=== PATIENT | male | born 1965 | race Caucasian/White ===

== ENCOUNTER 2017-01-18 07:50 | Inpatient (IN) | payer OTHER, MEDICAID ==
[~2017-01-18] VITALS: Ht 177.8 cm; Wt 88.9 kg
[~2017-01-18 07:50] MED LIST: AMLO-511 PO; ASPI81 PO
[2017-01-18] MEDS ORDERED: LORazepam 2 MG TABLET PO ONE ×2 (08:15→09:45)
[2017-01-18] MEDS ORDERED: ACETAMINOPHEN 325 MG TABLET PO ONE (08:15)
[2017-01-18] MEDS ORDERED: HALOPERIDOL 5 MG TABLET PO ONE (08:15)
[2017-01-18 08:28] LABS: BASOPHILS % (AUTO) 0.8 % (0.0-2.0); EOSINOPHILS % (AUTO) 1.8 % (1.0-6.0); HEMATOCRIT 48.4 % (41-53); HEMOGLOBIN 16.6 g/dL (13.5-17.5); LYMPHOCYTES # (AUTO) 1.8 K/uL (1.0-4.8); LYMPHOCYTES % (AUTO) 20.1 % (22.0-44.0); MEAN CORPUSCULAR HEMOGLOBIN 29.8 pg (26.0-34.0); MEAN CORPUSCULAR HGB CONC 34.3 G/dL (31.0-37.0); MEAN CORPUSCULAR VOLUME 87 fL (80-100); MONOCYTES # (AUTO) 0.4 K/uL (0.1-1.0); NEUTROPHILS # (AUTO) 6.4 K/uL (1.8-7.7); NEUTROPHILS % (AUTO) 72.3 % (40.0-70.0); PLATELET COUNT (AUTO) 158 K/uL (150-450); RED BLOOD CELL COUNT(AUTO) 5.56 MIL/uL (4.50-5.90); RED CELL DISTRIBUTION WIDTH 14.1 % (11.5-14.5); WHITE BLOOD COUNT (AUTO) 8.9 K/uL (4.5-11.0)
[2017-01-18 08:35] LABS: ANION GAP 13 mmol/L (8-16); CALCIUM, TOTAL 8.9 mg/dL (8.8-10.5); CARBON DIOXIDE 23 mmol/L (22-29); CHLORIDE 105 mmol/L (98-107); CREATININE 1.24 mg/dL (0.60-1.30); GLOMERULAR FILTR. RATE CALC > 60 mL/min (>60); POTASSIUM 3.6 mmol/L (3.5-5.1); SODIUM SERUM 141 mmol/L (136-145); UREA NITROGEN, BLOOD 17 mg/dL (7-18)
[2017-01-18 08:37] LABS: APPEARANCE,URINE CLEAR (CLEAR); GLUCOSE, URINE (UA) NEGATIVE (NEGATIVE); KETONES,URINE NEGATIVE (NEGATIVE); LEUKOCYTE ESTERASE ,URINE NEGATIVE (NEGATIVE); OCCULT BLOOD,URINE NEGATIVE (NEGATIVE); PROTEIN,URINE TRACE (NEGATIVE)
[2017-01-18 08:41] LABS: ALANINE AMINOTRANSFERASE 39 U/L (12-78); ALBUMIN 4.1 g/dL (3.4-5.0); ASPARTATE AMINOTRANSFERASE 24 U/L (15-37); BILIRUBIN,TOTAL 0.4 mg/dL (0.1-1.0); TOTAL PROTEIN, SERUM 7.4 g/dL (6.4-8.2)
[2017-01-18 08:47] LABS: HYALINE CASTS, URINE 0-2 /LPF (None Seen); WBC,URINE 0-2 /HPF (0-5)
[2017-01-18] MEDS ORDERED: ZOLPIDEM TARTRATE 10 MG TABLET PO PRN (11:15)
[2017-01-18] MEDS ORDERED: HALOPERIDOL 5 MG TABLET PO PRN (11:15)
[2017-01-18 12:47] VITALS: BP 124/72
[2017-01-18] MEDS: RisperiDONE 3 MG TABLET PO SCH (16:38)
[2017-01-18] MEDS: DIVALPROEX SODIUM 500 MG DR TABLET PO SCH (16:38)
[2017-01-18] MEDS: LORazepam 2 MG TABLET PO PRN (16:42)
[2017-01-18 19:53] VITALS: BP 137/86
[2017-01-19 08:15] VITALS: BP 162/95
[2017-01-19] MEDS: ASPIRIN 81 MG CHEWABLE TABLET PO SCH (08:52)
[2017-01-19] MEDS: RisperiDONE 3 MG TABLET PO SCH ×2 (08:52→16:25)
[2017-01-19] MEDS: DIVALPROEX SODIUM 500 MG DR TABLET PO SCH ×2 (08:52→16:25)
[2017-01-19] MEDS: AmLODIPine BESYLATE 5 MG TABLET PO SCH (08:52)
[2017-01-19] MEDS: LORazepam 2 MG TABLET PO PRN (16:28)
[2017-01-19 18:42] VITALS: BP 136/85
[2017-01-20] MEDS: DIVALPROEX SODIUM 500 MG DR TABLET PO SCH ×2 (08:19→17:08)
[2017-01-20] MEDS: AmLODIPine BESYLATE 5 MG TABLET PO SCH (08:19)
[2017-01-20] MEDS: ASPIRIN 81 MG CHEWABLE TABLET PO SCH (08:19)
[2017-01-20] MEDS: RisperiDONE 3 MG TABLET PO SCH ×2 (08:20→17:08)
[2017-01-20 09:29] VITALS: BP 134/96
[2017-01-20] MEDS: ATORVASTATIN CALCIUM 40 MG TABLET PO SCH (14:27)
[2017-01-20 16:48] VITALS: BP 115/82
[2017-01-21 08:05] VITALS: BP 140/111
[2017-01-21] MEDS: ASPIRIN 81 MG CHEWABLE TABLET PO SCH (08:39)
[2017-01-21] MEDS: AmLODIPine BESYLATE 5 MG TABLET PO SCH (08:39)
[2017-01-21] MEDS: RisperiDONE 3 MG TABLET PO SCH ×2 (08:39→15:56)
[2017-01-21] MEDS: DIVALPROEX SODIUM 500 MG DR TABLET PO SCH ×2 (08:39→15:56)
[2017-01-21] MEDS: ATORVASTATIN CALCIUM 40 MG TABLET PO SCH (08:39)
[2017-01-21] MEDS: LORazepam 2 MG TABLET PO PRN (15:56)
[2017-01-22 08:05] VITALS: BP 136/93
[2017-01-22] MEDS: DIVALPROEX SODIUM 500 MG DR TABLET PO SCH ×2 (08:23→16:27)
[2017-01-22] MEDS: ASPIRIN 81 MG CHEWABLE TABLET PO SCH (08:24)
[2017-01-22] MEDS: AmLODIPine BESYLATE 5 MG TABLET PO SCH (08:24)
[2017-01-22] MEDS: ATORVASTATIN CALCIUM 40 MG TABLET PO SCH (08:24)
[2017-01-22] MEDS: RisperiDONE 3 MG TABLET PO SCH ×2 (08:24→16:27)
[2017-01-22] MEDS: LORazepam 2 MG TABLET PO PRN (16:27)
[2017-01-22 19:12] VITALS: BP 143/74
[2017-01-23 08:01] VITALS: BP 133/81
[2017-01-23] MEDS: ASPIRIN 81 MG CHEWABLE TABLET PO SCH (08:07)
[2017-01-23] MEDS: ATORVASTATIN CALCIUM 40 MG TABLET PO SCH (08:07)
[2017-01-23] MEDS: DIVALPROEX SODIUM 500 MG DR TABLET PO SCH ×2 (08:07→16:17)
[2017-01-23] MEDS: AmLODIPine BESYLATE 5 MG TABLET PO SCH (08:07)
[2017-01-23] MEDS: RisperiDONE 3 MG TABLET PO SCH ×2 (08:08→16:17)
[2017-01-23] MEDS: LORazepam 2 MG TABLET PO PRN (16:19)
[2017-01-23 16:49] VITALS: BP 145/96
[2017-01-24] MEDS: DIVALPROEX SODIUM 500 MG DR TABLET PO SCH ×2 (08:51→16:56)
[2017-01-24] MEDS: AmLODIPine BESYLATE 5 MG TABLET PO SCH (08:51)
[2017-01-24] MEDS: ASPIRIN 81 MG CHEWABLE TABLET PO SCH (08:51)
[2017-01-24] MEDS: ATORVASTATIN CALCIUM 40 MG TABLET PO SCH (08:51)
[2017-01-24] MEDS: RisperiDONE 3 MG TABLET PO SCH ×2 (08:52→16:56)
[2017-01-24 10:04] VITALS: BP 119/99
[2017-01-24] MEDS: LORazepam 2 MG TABLET PO PRN (15:15)
[2017-01-24 16:37] VITALS: BP 137/96
[2017-01-25 08:00] VITALS: BP 139/105
[2017-01-25] MEDS: DIVALPROEX SODIUM 500 MG DR TABLET PO SCH ×2 (08:44→16:09)
[2017-01-25] MEDS: ASPIRIN 81 MG CHEWABLE TABLET PO SCH (08:44)
[2017-01-25] MEDS: AmLODIPine BESYLATE 5 MG TABLET PO SCH (08:45)
[2017-01-25] MEDS: ATORVASTATIN CALCIUM 40 MG TABLET PO SCH (08:45)
[2017-01-25] MEDS: RisperiDONE 3 MG TABLET PO SCH ×2 (08:45→16:09)
[2017-01-25] MEDS: LORazepam 2 MG TABLET PO PRN ×2 (12:29→16:39)
[2017-01-25 17:08] VITALS: BP 143/104
[2017-01-26 08:01] VITALS: BP 135/85
[2017-01-26] MEDS: ATORVASTATIN CALCIUM 40 MG TABLET PO SCH (08:36)
[2017-01-26] MEDS: AmLODIPine BESYLATE 5 MG TABLET PO SCH (08:36)
[2017-01-26] MEDS: DIVALPROEX SODIUM 500 MG DR TABLET PO SCH ×2 (08:36→16:45)
[2017-01-26] MEDS: RisperiDONE 3 MG TABLET PO SCH ×2 (08:36→16:45)
[2017-01-26] MEDS: ASPIRIN 81 MG CHEWABLE TABLET PO SCH (08:37)
[2017-01-26] MEDS: LORazepam 2 MG TABLET PO PRN ×3 (10:41→20:47)
[2017-01-26 18:15] VITALS: BP 132/88
[2017-01-27 01:12] VITALS: BP 122/96
[2017-01-27] MEDS: AmLODIPine BESYLATE 5 MG TABLET PO SCH (08:01)
[2017-01-27] MEDS: DIVALPROEX SODIUM 500 MG DR TABLET PO SCH (08:01)
[2017-01-27] MEDS: RisperiDONE 3 MG TABLET PO SCH (08:01)
[2017-01-27] MEDS: ASPIRIN 81 MG CHEWABLE TABLET PO SCH (08:01)
[2017-01-27] MEDS: ATORVASTATIN CALCIUM 40 MG TABLET PO SCH (08:01)
[2017-01-27 08:02] VITALS: BP 142/86
[2017-01-27] MEDS: LORazepam 2 MG TABLET PO PRN (09:51)
[2017-01-27] MEDS ORDERED: DIVA250T45 PO (10:29)
[2017-01-27] MEDS ORDERED: RISP3TAB44 PO (10:29)
[2017-01-27] MEDS ORDERED: ATOR40TA28 PO (10:36)
== END 2017-01-27 15:00 | disposition home or self-care (01) | DRG 885 ==
LOC: EMS 07:51 → 3EX 11:30
PROVIDERS: ADMIT Psychiatry & Neurology Psychiatry; ATTEND Psychiatry & Neurology Psychiatry
DX: F25.9 Schizoaffective disorder, unspecified (principal); F22 Delusional disorders; R45.851 Suicidal ideations; I10 Essential (primary) hypertension; F15.10 Other stimulant abuse, uncomplicated; F41.9 Anxiety disorder, unspecified; Z79.82 Long term (current) use of aspirin; Z79.899 Other long term (current) drug therapy; Z87.891 Personal history of nicotine dependence
CPT/HCPCS: 99285; G0480

== ENCOUNTER 2017-02-15 17:18 | Emergency (ER) | payer MEDICARE, MEDICAID ==
[~2017-02-15] VITALS: Ht 177.8 cm; Wt 90.9 kg
[~2017-02-15 17:18] MED LIST changes: +ATOR40TA28 PO; +DIVA250T45 PO; +RISP3TAB44 PO
[2017-02-15] MEDS ORDERED: ALPR0.5T8 PO (17:29)
[2017-02-15] MEDS ORDERED: LURA60TA PO (17:29)
[2017-02-15 19:24] VITALS: BP 149/95
[2017-02-15] MEDS ORDERED: BACITRACIN 0.9 GM PACKET OINTMENT TP ONE (19:30)
== END 2017-02-15 19:40 | disposition home or self-care (01) ==
LOC: EMS 17:20
DX: S90.822A Blister (nonthermal), left foot, initial encounter (principal); L97.519 Non-pressure chronic ulcer of other part of right foot with unspecified severity; I10 Essential (primary) hypertension; F17.210 Nicotine dependence, cigarettes, uncomplicated; F15.90 Other stimulant use, unspecified, uncomplicated; X58.XXXA Exposure to other specified factors, initial encounter; Y93.89 Activity, other specified; Y92.89 Other specified places as the place of occurrence of the external cause; Y99.8 Other external cause status
CPT/HCPCS: 99282; 99406

== ENCOUNTER 2017-04-12 23:38 | Inpatient (IN) | payer OTHER, MEDICAID ==
[~2017-04-12] VITALS: Ht 175.3 cm; Wt 87.1 kg
[~2017-04-12 23:38] MED LIST changes: +ALPR0.5T8 PO; +LURA60TA PO
[2017-04-13 00:16] LABS: BASOPHILS % (AUTO) 0.7 % (0.0-2.0); EOSINOPHILS % (AUTO) 1.6 % (1.0-6.0); HEMATOCRIT 49.6 % (41-53); LYMPHOCYTES # (AUTO) 2.4 K/uL (1.0-4.8); LYMPHOCYTES % (AUTO) 30.8 % (22.0-44.0); MEAN CORPUSCULAR HEMOGLOBIN 29.7 pg (26.0-34.0); MEAN CORPUSCULAR HGB CONC 34.3 G/dL (31.0-37.0); MEAN CORPUSCULAR VOLUME 86 fL (80-100); MONOCYTES # (AUTO) 0.4 K/uL (0.1-1.0); MONOCYTES % (AUTO) 5.6 % (2.0-9.0); NEUTROPHILS # (AUTO) 4.9 K/uL (1.8-7.7); NEUTROPHILS % (AUTO) 61.3 % (40.0-70.0); PLATELET COUNT (AUTO) 176 K/uL (150-450); RED BLOOD CELL COUNT(AUTO) 5.73 MIL/uL (4.50-5.90); RED CELL DISTRIBUTION WIDTH 13.9 % (11.5-14.5)
[2017-04-13 00:36] LABS: ANION GAP 12 mmol/L (8-16); CALCIUM, TOTAL 9.4 mg/dL (8.8-10.5); CARBON DIOXIDE 26 mmol/L (22-29); CHLORIDE 104 mmol/L (98-107); GLOMERULAR FILTR. RATE CALC > 60 mL/min (>60); POTASSIUM 4.1 mmol/L (3.5-5.1); SODIUM SERUM 142 mmol/L (136-145); UREA NITROGEN, BLOOD 12 mg/dL (7-18)
[2017-04-13 00:42] LABS: ALANINE AMINOTRANSFERASE 28 U/L (12-78); ALBUMIN 4.3 g/dL (3.4-5.0); ASPARTATE AMINOTRANSFERASE 22 U/L (15-37); BILIRUBIN,TOTAL 0.4 mg/dL (0.1-1.0)
[2017-04-13] MEDS ORDERED: ZOLPIDEM TARTRATE 10 MG TABLET PO PRN (00:45)
[2017-04-13] MEDS: HALOPERIDOL 5 MG TABLET PO PRN (02:19)
[2017-04-13] MEDS: LORazepam 2 MG TABLET PO PRN ×3 (02:20→17:26)
[2017-04-13] MEDS ORDERED: INFLUENZA VIRUS VACCINE QVS 2017-18 (3YR+)/PF 60 MCG/0.5 ML SYRINGE IM ONE (04:45)
[2017-04-13] MEDS ORDERED: PNEUMOCOCCAL VACCINE POLYVALENT 0.5 ML VIAL [PPSV23] IM ONE (04:45)
[2017-04-13 05:43] VITALS: BP 129/92
[2017-04-13 08:15] VITALS: BP 155/106
[2017-04-13 08:30] VITALS: BP 116/76
[2017-04-13 16:00] VITALS: BP 146/91
[2017-04-13] MEDS: DIVALPROEX SODIUM 500 MG DR TABLET PO SCH (17:00)
[2017-04-13] MEDS: RisperiDONE 2 MG TABLET PO SCH (17:00)
[2017-04-14 06:06] VITALS: BP 134/82
[2017-04-14 08:30] VITALS: BP 160/86
[2017-04-14] MEDS: RisperiDONE 2 MG TABLET PO SCH ×2 (09:00→16:02)
[2017-04-14] MEDS ORDERED: AmLODIPine BESYLATE 5 MG TABLET PO SCH (09:00)
[2017-04-14] MEDS: ATORVASTATIN CALCIUM 40 MG TABLET PO SCH (09:05)
[2017-04-14] MEDS: DIVALPROEX SODIUM 500 MG DR TABLET PO SCH ×2 (09:05→16:02)
[2017-04-14] MEDS: ASPIRIN 81 MG CHEWABLE TABLET PO SCH (09:05)
[2017-04-14 09:09] LABS: THYROID STIMULATING HORMONE 3.23 uIU/mL (0.36-3.74)
[2017-04-14 10:30] VITALS: BP 150/106
[2017-04-14] MEDS ORDERED: AmLODIPine BESYLATE 5 MG TABLET PO ONE (11:00)
[2017-04-14 11:32] LABS: HEMOGLOBIN A1C 5.3 % (4.5-6.2)
[2017-04-14 12:00] VITALS: BP 160/86
[2017-04-14] MEDS: LORazepam 2 MG TABLET PO PRN (13:50)
[2017-04-14 14:00] VITALS: BP 154/110
[2017-04-14] MEDS ORDERED: CloNIDine HCL 0.1 MG TABLET PO ONE (14:15)
[2017-04-14] MEDS: CloNIDine HCL 0.1 MG TABLET PO SCH (16:02)
[2017-04-14 16:26] VITALS: BP 118/80
[2017-04-15 05:15] VITALS: BP 133/90
[2017-04-15] MEDS: LORazepam 2 MG TABLET PO PRN ×3 (05:26→21:20)
[2017-04-15 08:10] VITALS: BP 111/67
[2017-04-15] MEDS: ATORVASTATIN CALCIUM 40 MG TABLET PO SCH (08:30)
[2017-04-15] MEDS: DIVALPROEX SODIUM 500 MG DR TABLET PO SCH ×2 (08:30→16:16)
[2017-04-15] MEDS: AmLODIPine BESYLATE 10 MG TABLET PO SCH (08:30)
[2017-04-15] MEDS: RisperiDONE 2 MG TABLET PO SCH ×2 (08:31→16:15)
[2017-04-15] MEDS: ASPIRIN 81 MG CHEWABLE TABLET PO SCH (08:31)
[2017-04-15] MEDS: CloNIDine HCL 0.1 MG TABLET PO SCH ×2 (09:00→16:15)
[2017-04-15 10:54] VITALS: BP 109/62
[2017-04-15 18:01] VITALS: BP 129/66
[2017-04-16 06:40] VITALS: BP 120/82
[2017-04-16 09:28] VITALS: BP 121/105
[2017-04-16] MEDS: ASPIRIN 81 MG CHEWABLE TABLET PO SCH (09:45)
[2017-04-16] MEDS: RisperiDONE 2 MG TABLET PO SCH ×2 (09:45→17:03)
[2017-04-16] MEDS: ATORVASTATIN CALCIUM 40 MG TABLET PO SCH (09:45)
[2017-04-16] MEDS: AmLODIPine BESYLATE 10 MG TABLET PO SCH (09:45)
[2017-04-16] MEDS: DIVALPROEX SODIUM 500 MG DR TABLET PO SCH ×2 (09:45→17:02)
[2017-04-16] MEDS: CloNIDine HCL 0.1 MG TABLET PO SCH ×2 (09:45→17:03)
[2017-04-16] MEDS: LORazepam 2 MG TABLET PO PRN ×2 (13:22→17:57)
[2017-04-16 16:15] VITALS: BP 112/72
[2017-04-17 01:09] VITALS: BP 117/72
[2017-04-17 08:36] VITALS: BP 120/69
[2017-04-17] MEDS: DIVALPROEX SODIUM 500 MG DR TABLET PO SCH ×2 (08:39→16:27)
[2017-04-17] MEDS: RisperiDONE 2 MG TABLET PO SCH ×2 (08:40→16:27)
[2017-04-17] MEDS: AmLODIPine BESYLATE 10 MG TABLET PO SCH (08:40)
[2017-04-17] MEDS: ATORVASTATIN CALCIUM 40 MG TABLET PO SCH (08:40)
[2017-04-17] MEDS: CloNIDine HCL 0.1 MG TABLET PO SCH ×2 (08:40→16:27)
[2017-04-17] MEDS: ASPIRIN 81 MG CHEWABLE TABLET PO SCH (08:40)
[2017-04-17] MEDS: LORazepam 2 MG TABLET PO PRN (11:22)
[2017-04-17 16:00] VITALS: BP 119/84
[2017-04-18 06:59] VITALS: BP 103/65
[2017-04-18 08:48] VITALS: BP 128/78
[2017-04-18] MEDS: DIVALPROEX SODIUM 500 MG DR TABLET PO SCH ×2 (09:13→17:07)
[2017-04-18] MEDS: AmLODIPine BESYLATE 10 MG TABLET PO SCH (09:13)
[2017-04-18] MEDS: CloNIDine HCL 0.1 MG TABLET PO SCH ×2 (09:13→17:07)
[2017-04-18] MEDS: ASPIRIN 81 MG CHEWABLE TABLET PO SCH (09:13)
[2017-04-18] MEDS: ATORVASTATIN CALCIUM 40 MG TABLET PO SCH (09:13)
[2017-04-18] MEDS: RisperiDONE 2 MG TABLET PO SCH ×2 (09:13→17:07)
[2017-04-18] MEDS: LORazepam 2 MG TABLET PO PRN (10:56)
[2017-04-18 16:04] VITALS: BP 126/80
[2017-04-19 06:29] VITALS: BP 115/73
[2017-04-19 08:31] VITALS: BP 147/71
[2017-04-19] MEDS: AmLODIPine BESYLATE 10 MG TABLET PO SCH (08:55)
[2017-04-19] MEDS: DIVALPROEX SODIUM 500 MG DR TABLET PO SCH ×2 (08:55→16:36)
[2017-04-19] MEDS: ATORVASTATIN CALCIUM 40 MG TABLET PO SCH (08:55)
[2017-04-19] MEDS: ASPIRIN 81 MG CHEWABLE TABLET PO SCH (08:55)
[2017-04-19] MEDS: RisperiDONE 2 MG TABLET PO SCH (08:55)
[2017-04-19] MEDS: CloNIDine HCL 0.1 MG TABLET PO SCH ×2 (08:55→16:36)
[2017-04-19] MEDS: LORazepam 2 MG TABLET PO PRN (11:56)
[2017-04-19 16:02] VITALS: BP_SYST 107; BP_SYST 110; BP_DIAS 69
[2017-04-19] MEDS: HALOPERIDOL 5 MG TABLET PO PRN (16:28)
[2017-04-19] MEDS: RisperiDONE 3 MG TABLET PO SCH (19:26)
[2017-04-20 03:59] VITALS: BP 116/75
[2017-04-20 08:58] VITALS: BP 126/77
[2017-04-20] MEDS: CloNIDine HCL 0.1 MG TABLET PO SCH ×2 (09:06→16:33)
[2017-04-20] MEDS: ATORVASTATIN CALCIUM 40 MG TABLET PO SCH (09:06)
[2017-04-20] MEDS: RisperiDONE 3 MG TABLET PO SCH ×2 (09:06→16:33)
[2017-04-20] MEDS: DIVALPROEX SODIUM 500 MG DR TABLET PO SCH ×2 (09:06→16:33)
[2017-04-20] MEDS: AmLODIPine BESYLATE 10 MG TABLET PO SCH (09:06)
[2017-04-20] MEDS: ASPIRIN 81 MG CHEWABLE TABLET PO SCH (09:06)
[2017-04-20] MEDS: LORazepam 2 MG TABLET PO PRN (09:46)
[2017-04-20 16:05] VITALS: BP_SYST 108; BP_SYST 128; BP_DIAS 64; BP_DIAS 94
[2017-04-21 03:40] VITALS: BP 122/75
[2017-04-21 08:22] VITALS: BP 133/82
[2017-04-21] MEDS: CloNIDine HCL 0.1 MG TABLET PO SCH (08:58)
[2017-04-21] MEDS: AmLODIPine BESYLATE 10 MG TABLET PO SCH (08:58)
[2017-04-21] MEDS: ATORVASTATIN CALCIUM 40 MG TABLET PO SCH (08:58)
[2017-04-21] MEDS: RisperiDONE 3 MG TABLET PO SCH (08:58)
[2017-04-21] MEDS: DIVALPROEX SODIUM 500 MG DR TABLET PO SCH (08:58)
[2017-04-21] MEDS: ASPIRIN 81 MG CHEWABLE TABLET PO SCH (08:58)
[2017-04-21] MEDS ORDERED: DIVA500T35 PO (10:09)
[2017-04-21] MEDS ORDERED: CLON-570 PO (10:09)
== END 2017-04-21 13:00 | disposition home or self-care (01) | DRG 885 ==
LOC: EMS 23:40 → B2S 04-13 02:09 → B2X 04-17 16:05
PROVIDERS: ADMIT Psychiatry & Neurology Psychiatry; ATTEND Psychiatry & Neurology Psychiatry
DX: F20.0 Paranoid schizophrenia (principal); E78.5 Hyperlipidemia, unspecified; Z28.21 Immunization not carried out because of patient refusal; Z79.82 Long term (current) use of aspirin; Z79.899 Other long term (current) drug therapy; F17.210 Nicotine dependence, cigarettes, uncomplicated; F19.11 Other psychoactive substance abuse, in remission; I10 Essential (primary) hypertension; F10.129 Alcohol abuse with intoxication, unspecified
CPT/HCPCS: 83036; 84439; 84443; 90471; 99285; G0480

== ENCOUNTER 2017-09-27 00:07 | Emergency (ER) | payer MEDICARE, MEDICAID ==
[~2017-09-27] VITALS: Ht 177.8 cm; Wt 91.5 kg
[~2017-09-27 00:07] MED LIST changes: -ALPR0.5T8 PO; +CLON-570 PO; -DIVA250T45 PO; +DIVA500T35 PO; -LURA60TA PO
[2017-09-27] MEDS ORDERED: LISI-661 PO (00:15)
[2017-09-27 03:00] VITALS: BP 138/76
== END 2017-09-27 03:47 | disposition home or self-care (01) ==
LOC: EMS 00:09
DX: K08.89 Other specified disorders of teeth and supporting structures (principal); F17.210 Nicotine dependence, cigarettes, uncomplicated; F20.9 Schizophrenia, unspecified; I10 Essential (primary) hypertension; F15.10 Other stimulant abuse, uncomplicated; Z79.82 Long term (current) use of aspirin; Z98.890 Other specified postprocedural states
CPT/HCPCS: 99283

== ENCOUNTER 2018-02-14 00:47 | Emergency (ER) | payer MEDICARE, MEDICAID ==
[~2018-02-14] VITALS: Ht 177.8 cm; Wt 90.9 kg
[~2018-02-14 00:47] MED LIST changes: -CLON-570 PO; -DIVA500T35 PO; +LISI-661 PO; -RISP3TAB44 PO
[2018-02-14] MEDS ORDERED: ALPR0.5T8 PO (00:57)
[2018-02-14] MEDS ORDERED: LURA80 PO (00:57)
[2018-02-14] MEDS ORDERED: DiphenhydrAMINE HCL 25 MG CAPSULE PO ONE (02:30)
[2018-02-14 02:31] VITALS: BP 138/88
== END 2018-02-14 02:41 | disposition home or self-care (01) ==
LOC: EMS 00:47
DX: L25.9 Unspecified contact dermatitis, unspecified cause (principal); I10 Essential (primary) hypertension; F20.9 Schizophrenia, unspecified; F17.210 Nicotine dependence, cigarettes, uncomplicated; F15.90 Other stimulant use, unspecified, uncomplicated
CPT/HCPCS: 99283

== ENCOUNTER 2018-02-16 17:07 | Emergency (ER) | payer MEDICARE, MEDICAID ==
[~2018-02-16] VITALS: Ht 177.8 cm; Wt 90.9 kg
[~2018-02-16 17:07] MED LIST changes: +ALPR0.5T8 PO; -ASPI81 PO; -ATOR40TA28 PO; +LURA80 PO
[2018-02-16 19:02] LABS: BASOPHILS % (AUTO) 1.2 % (0.0-2.0); EOSINOPHILS % (AUTO) 1.3 % (1.0-6.0); HEMATOCRIT 42.6 % (41-53); HEMOGLOBIN 14.8 g/dL (13.5-17.5); LYMPHOCYTES # (AUTO) 1.3 K/uL (1.0-4.8); LYMPHOCYTES % (AUTO) 17.1 % (22.0-44.0); MEAN CORPUSCULAR HEMOGLOBIN 28.9 pg (26.0-34.0); MEAN CORPUSCULAR HGB CONC 34.6 G/dL (31.0-37.0); MEAN CORPUSCULAR VOLUME 84 fL (80-100); MONOCYTES # (AUTO) 0.6 K/uL (0.1-1.0); MONOCYTES % (AUTO) 7.6 % (2.0-9.0); NEUTROPHILS # (AUTO) 5.6 K/uL (1.8-7.7); NEUTROPHILS % (AUTO) 72.8 % (40.0-70.0); PLATELET COUNT (AUTO) 218 K/uL (150-450); RED CELL DISTRIBUTION WIDTH 13.7 % (11.5-14.5)
[2018-02-16 19:18] LABS: ANION GAP 12 mmol/L (8-16); CALCIUM, TOTAL 8.8 mg/dL (8.8-10.5); CARBON DIOXIDE 23 mmol/L (22-29); CHLORIDE 106 mmol/L (98-107); CREATININE 1.25 mg/dL (0.60-1.30); GLOMERULAR FILTR. RATE CALC 60 mL/min (>60); GLUCOSE,RANDOM 95 mg/dL (70-110); POTASSIUM 3.9 mmol/L (3.5-5.1); SODIUM SERUM 141 mmol/L (136-145); UREA NITROGEN, BLOOD 22 mg/dL (7-18)
[2018-02-16 19:24] LABS: AMPHET/METH SCREEN,URINE POSITIVE (NEGATIVE); BARBITURATE SCREEN, URINE NEGATIVE (NEGATIVE); BENZODIAZEPINES SCREEN,URINE POSITIVE (NEGATIVE); CANNABINOID SCREEN,URINE NEGATIVE (NEGATIVE); COCAINE SCREEN,URINE NEGATIVE (NEGATIVE); METHADONE SCREEN, URINE NEGATIVE (NEGATIVE); OPIATE SCREEN,URINE NEGATIVE (NEGATIVE)
[2018-02-16 19:25] LABS: ALANINE AMINOTRANSFERASE 24 U/L (12-78); ALBUMIN 3.7 g/dL (3.4-5.0); ALKALINE PHOSPHATASE 61 U/L (46-116); ASPARTATE AMINOTRANSFERASE 23 U/L (15-37); BILIRUBIN,TOTAL 0.4 mg/dL (0.1-1.0); TOTAL PROTEIN, SERUM 7.6 g/dL (6.4-8.2)
[2018-02-16 19:37] LABS: PHENCYCLIDINE SCREEN,URINE NEGATIVE (NEGATIVE)
[2018-02-16] MEDS ORDERED: LORazepam 1 MG TABLET PO ONE (20:00)
[2018-02-16] MEDS ORDERED: HALOPERIDOL 1 MG TABLET PO ONE (20:00)
[2018-02-16] MEDS ORDERED: AMLO-512 PO (20:01)
[2018-02-16 20:13] VITALS: BP 127/87
== END 2018-02-16 20:23 | disposition home or self-care (01) ==
LOC: EMS 17:09
DX: F41.9 Anxiety disorder, unspecified (principal); F22 Delusional disorders; I10 Essential (primary) hypertension; F20.9 Schizophrenia, unspecified; F17.210 Nicotine dependence, cigarettes, uncomplicated; F15.90 Other stimulant use, unspecified, uncomplicated; Z79.899 Other long term (current) drug therapy
CPT/HCPCS: 36415; 80053; 80307; 85025; 99284; G0480

== ENCOUNTER 2018-03-02 06:51 | Inpatient (IN) | payer OTHER, MEDICAID ==
[~2018-03-02] VITALS: Ht 177.8 cm; Wt 83.5 kg
[~2018-03-02 06:51] MED LIST changes: -AMLO-511 PO; +AMLO-512 PO
[2018-03-02] MEDS ORDERED: ASPI81 PO (07:04)
[2018-03-02] MEDS ORDERED: QUET25TA PO (07:04)
[2018-03-02] MEDS ORDERED: HALOPERIDOL 5 MG TABLET PO PRN (08:30)
[2018-03-02] MEDS ORDERED: ZOLPIDEM TARTRATE 10 MG TABLET PO PRN (08:30)
[2018-03-02 10:06] LABS: AMPHET/METH SCREEN,URINE POSITIVE (NEGATIVE); BARBITURATE SCREEN, URINE NEGATIVE (NEGATIVE); BENZODIAZEPINES SCREEN,URINE POSITIVE (NEGATIVE); CANNABINOID SCREEN,URINE NEGATIVE (NEGATIVE); COCAINE SCREEN,URINE NEGATIVE (NEGATIVE); METHADONE SCREEN, URINE NEGATIVE (NEGATIVE); OPIATE SCREEN,URINE NEGATIVE (NEGATIVE)
[2018-03-02 10:07] LABS: PHENCYCLIDINE SCREEN,URINE NEGATIVE (NEGATIVE)
[2018-03-02 10:12] LABS: APPEARANCE,URINE CLEAR (CLEAR); BILIRUBIN,URINE NEGATIVE (NEGATIVE); GLUCOSE, URINE (UA) NEGATIVE (NEGATIVE); KETONES,URINE NEGATIVE (NEGATIVE); LEUKOCYTE ESTERASE ,URINE NEGATIVE (NEGATIVE); NITRATE,URINE NEGATIVE (NEGATIVE); OCCULT BLOOD,URINE NEGATIVE (NEGATIVE); PROTEIN,URINE NEGATIVE (NEGATIVE); UROBILINOGEN,URINE 0.2 mg/dL (<=1.0)
[2018-03-02] MEDS: LORazepam 2 MG TABLET PO PRN (11:39)
[2018-03-02 13:30] VITALS: BP 123/83
[2018-03-02 17:00] VITALS: BP 106/59
[2018-03-03 06:23] LABS: BASOPHILS % (AUTO) 0.6 % (0.0-2.0); EOSINOPHILS % (AUTO) 3.4 % (1.0-6.0); HEMATOCRIT 46.2 % (41-53); HEMOGLOBIN 15.7 g/dL (13.5-17.5); LYMPHOCYTES # (AUTO) 2.2 K/uL (1.0-4.8); LYMPHOCYTES % (AUTO) 30.8 % (22.0-44.0); MEAN CORPUSCULAR HEMOGLOBIN 29.1 pg (26.0-34.0); MEAN CORPUSCULAR HGB CONC 33.9 G/dL (31.0-37.0); MEAN CORPUSCULAR VOLUME 86 fL (80-100); MONOCYTES # (AUTO) 0.5 K/uL (0.1-1.0); MONOCYTES % (AUTO) 7.2 % (2.0-9.0); NEUTROPHILS # (AUTO) 4.2 K/uL (1.8-7.7); PLATELET COUNT (AUTO) 175 K/uL (150-450); RED BLOOD CELL COUNT(AUTO) 5.38 MIL/uL (4.50-5.90); RED CELL DISTRIBUTION WIDTH 13.6 % (11.5-14.5)
[2018-03-03 06:32] LABS: HEMOGLOBIN A1C 5.4 % (4.5-6.2)
[2018-03-03 07:06] LABS: ALANINE AMINOTRANSFERASE 25 U/L (12-78); ALBUMIN 3.3 g/dL (3.4-5.0); ALKALINE PHOSPHATASE 56 U/L (46-116); ANION GAP 9 mmol/L (8-16); ASPARTATE AMINOTRANSFERASE 18 U/L (15-37); BILIRUBIN,TOTAL 0.3 mg/dL (0.1-1.0); CALCIUM, TOTAL 8.6 mg/dL (8.8-10.5); CARBON DIOXIDE 26 mmol/L (22-29); CHLORIDE 104 mmol/L (98-107); CHOL/HDL RATIO 6.4 (4.2-7.3); CHOLESTEROL 216 mg/dL (131-200); CREATININE 1.09 mg/dL (0.60-1.30); FREE T4 (FREE THYROXINE) 0.58 ng/dL (0.76-1.46); GLOMERULAR FILTR. RATE CALC > 60 mL/min (>60); GLUCOSE,RANDOM 95 mg/dL (70-110); HDL CHOLESTEROL 34 mg/dL (40-60); LDL CHOL (CALC.) 128 mg/dL (0-130); POTASSIUM 4.1 mmol/L (3.5-5.1); SODIUM SERUM 139 mmol/L (136-145); THYROID STIMULATING HORMONE 1.78 uIU/mL (0.36-3.74); TOTAL PROTEIN, SERUM 6.7 g/dL (6.4-8.2); TRIGLYCERIDES 272 mg/dL (15-150); UREA NITROGEN, BLOOD 17 mg/dL (7-18)
[2018-03-03] MEDS: ASPIRIN 81 MG CHEWABLE TABLET PO SCH (08:55)
[2018-03-03] MEDS: DIVALPROEX SODIUM 500 MG DR TABLET PO SCH ×2 (08:55→16:44)
[2018-03-03] MEDS: RisperiDONE 3 MG TABLET PO SCH ×2 (08:55→16:44)
[2018-03-03] MEDS ORDERED: AmLODIPine BESYLATE 10 MG TABLET PO SCH (09:00)
[2018-03-03] MEDS ORDERED: LISINOPRIL 10 MG TABLET PO SCH (09:00)
[2018-03-03 09:20] VITALS: BP 143/67
[2018-03-03] MEDS: AmLODIPine BESYLATE 5 MG TABLET PO SCH (09:36)
[2018-03-03] MEDS: LISINOPRIL 5 MG TABLET PO SCH (09:37)
[2018-03-03] MEDS: LORazepam 2 MG TABLET PO PRN (16:45)
[2018-03-03 22:33] VITALS: BP 121/64
[2018-03-04] MEDS: RisperiDONE 3 MG TABLET PO SCH ×2 (09:41→16:55)
[2018-03-04] MEDS: ASPIRIN 81 MG CHEWABLE TABLET PO SCH (09:41)
[2018-03-04] MEDS: AmLODIPine BESYLATE 5 MG TABLET PO SCH (09:41)
[2018-03-04] MEDS: DIVALPROEX SODIUM 500 MG DR TABLET PO SCH ×2 (09:41→16:55)
[2018-03-04] MEDS: LISINOPRIL 5 MG TABLET PO SCH (09:41)
[2018-03-04] MEDS: LORazepam 2 MG TABLET PO PRN (09:50)
[2018-03-04 14:25] VITALS: BP 120/96
[2018-03-04 22:43] VITALS: BP 110/70
[2018-03-05] MEDS: ASPIRIN 81 MG CHEWABLE TABLET PO SCH (08:19)
[2018-03-05] MEDS: AmLODIPine BESYLATE 5 MG TABLET PO SCH (08:20)
[2018-03-05] MEDS: LISINOPRIL 5 MG TABLET PO SCH (08:20)
[2018-03-05] MEDS: DIVALPROEX SODIUM 500 MG DR TABLET PO SCH ×2 (08:20→16:45)
[2018-03-05] MEDS: RisperiDONE 3 MG TABLET PO SCH ×2 (08:20→16:45)
[2018-03-05 09:36] VITALS: BP 109/70
[2018-03-05] MEDS: LORazepam 2 MG TABLET PO PRN ×2 (10:19→16:55)
[2018-03-05 16:00] VITALS: BP 115/72
[2018-03-06] MEDS: ASPIRIN 81 MG CHEWABLE TABLET PO SCH (08:39)
[2018-03-06] MEDS: LISINOPRIL 5 MG TABLET PO SCH (08:39)
[2018-03-06] MEDS: RisperiDONE 3 MG TABLET PO SCH ×2 (08:39→16:28)
[2018-03-06] MEDS: AmLODIPine BESYLATE 5 MG TABLET PO SCH (08:39)
[2018-03-06] MEDS: DIVALPROEX SODIUM 500 MG DR TABLET PO SCH ×2 (08:39→16:28)
[2018-03-06 09:00] VITALS: BP 112/79
[2018-03-06] MEDS: LORazepam 2 MG TABLET PO PRN (14:05)
[2018-03-06 20:55] VITALS: BP 98/55
[2018-03-07] MEDS: DIVALPROEX SODIUM 500 MG DR TABLET PO SCH ×2 (08:27→17:20)
[2018-03-07] MEDS: ASPIRIN 81 MG CHEWABLE TABLET PO SCH (08:28)
[2018-03-07] MEDS: RisperiDONE 3 MG TABLET PO SCH ×2 (08:28→17:20)
[2018-03-07] MEDS: AmLODIPine BESYLATE 5 MG TABLET PO SCH (08:29)
[2018-03-07] MEDS: LISINOPRIL 5 MG TABLET PO SCH (08:29)
[2018-03-07 08:33] VITALS: BP 130/92
[2018-03-07 17:04] VITALS: BP 115/50
[2018-03-07] MEDS: LORazepam 2 MG TABLET PO PRN (17:20)
[2018-03-08] MEDS: LISINOPRIL 5 MG TABLET PO SCH (09:41)
[2018-03-08] MEDS: AmLODIPine BESYLATE 5 MG TABLET PO SCH (09:41)
[2018-03-08] MEDS: ASPIRIN 81 MG CHEWABLE TABLET PO SCH (09:42)
[2018-03-08] MEDS: DIVALPROEX SODIUM 500 MG DR TABLET PO SCH ×2 (09:42→16:04)
[2018-03-08] MEDS: RisperiDONE 3 MG TABLET PO SCH ×2 (09:42→16:04)
[2018-03-08 11:14] VITALS: BP 114/68
[2018-03-08] MEDS: LORazepam 2 MG TABLET PO PRN (16:04)
[2018-03-08 16:47] VITALS: BP 114/87
[2018-03-09] MEDS: LISINOPRIL 5 MG TABLET PO SCH (10:01)
[2018-03-09] MEDS: AmLODIPine BESYLATE 5 MG TABLET PO SCH (10:01)
[2018-03-09] MEDS: RisperiDONE 3 MG TABLET PO SCH (10:01)
[2018-03-09] MEDS: ASPIRIN 81 MG CHEWABLE TABLET PO SCH (10:02)
[2018-03-09] MEDS: DIVALPROEX SODIUM 500 MG DR TABLET PO SCH (10:02)
[2018-03-09 10:05] VITALS: BP 102/58
[2018-03-09] MEDS ORDERED: DIVA-78 PO (12:34)
[2018-03-09] MEDS ORDERED: RISP3 PO (12:35)
[2018-03-09] MEDS ORDERED: OMEG-135 PO (12:38)
[2018-03-09] MEDS ORDERED: AMLO-511 PO (12:38)
[2018-03-09] MEDS ORDERED: LISI-660 PO (12:38)
[2018-03-10] MEDS ORDERED: OMEGA-3/DHA/EPA/FISH OIL 1,000 MG CAPSULE PO SCH (09:00)
== END 2018-03-09 13:40 | disposition home or self-care (01) | DRG 885 ==
LOC: EMS 06:52 → 3EX 09:42
PROVIDERS: ADMIT Psychiatry & Neurology Psychiatry; ATTEND Psychiatry & Neurology Psychiatry
DX: F20.0 Paranoid schizophrenia (principal); R45.851 Suicidal ideations; E78.1 Pure hyperglyceridemia; E78.5 Hyperlipidemia, unspecified; F15.90 Other stimulant use, unspecified, uncomplicated; G47.00 Insomnia, unspecified; I10 Essential (primary) hypertension; F17.210 Nicotine dependence, cigarettes, uncomplicated; F41.9 Anxiety disorder, unspecified; R79.89 Other specified abnormal findings of blood chemistry; Z91.14 Patient's other noncompliance with medication regimen; Z79.899 Other long term (current) drug therapy; Z79.82 Long term (current) use of aspirin
CPT/HCPCS: 80074; 83036; 84439; 84443; G0378; G0480

== ENCOUNTER 2018-07-30 11:43 | Emergency (ER) | payer MEDICARE, MEDICAID ==
[~2018-07-30] VITALS: Ht 177.8 cm; Wt 91.8 kg
[~2018-07-30 11:43] MED LIST changes: -ALPR0.5T8 PO; +AMLO-511 PO; -AMLO-512 PO; +ASPI81 PO; +DIVA-78 PO; +LISI-660 PO; -LISI-661 PO; -LURA80 PO; +OMEG-135 PO; +RISP3 PO
[2018-07-30] MEDS ORDERED: ALPR0.5T8 PO (11:57)
[2018-07-30] MEDS ORDERED: ATOR20TA86 PO (11:57)
[2018-07-30] MEDS ORDERED: PALI39DI IM (11:57)
[2018-07-30] MEDS ORDERED: LEVE500T53 PO (11:57)
[2018-07-30 13:59] LABS: EOSINOPHILS % (AUTO) 2.9 % (1.0-6.0); HEMATOCRIT 47.9 % (41-53); HEMOGLOBIN 16.4 g/dL (13.5-17.5); LYMPHOCYTES % (AUTO) 29.2 % (22.0-44.0); MEAN CORPUSCULAR HEMOGLOBIN 29.1 pg (26.0-34.0); MEAN CORPUSCULAR HGB CONC 34.2 G/dL (31.0-37.0); MEAN CORPUSCULAR VOLUME 85 fL (80-100); MONOCYTES # (AUTO) 0.5 K/uL (0.1-1.0); MONOCYTES % (AUTO) 6.5 % (2.0-9.0); NEUTROPHILS # (AUTO) 4.2 K/uL (1.8-7.7); NEUTROPHILS % (AUTO) 60.4 % (40.0-70.0); PLATELET COUNT (AUTO) 204 K/uL (150-450); RED BLOOD CELL COUNT(AUTO) 5.63 MIL/uL (4.50-5.90)
[2018-07-30 14:11] LABS: ANION GAP 12 mmol/L (8-16); CALCIUM, TOTAL 9.6 mg/dL (8.8-10.5); CARBON DIOXIDE 26 mmol/L (22-29); CHLORIDE 102 mmol/L (98-107); CREATININE 1.13 mg/dL (0.60-1.30); GLOMERULAR FILTR. RATE CALC > 60 mL/min (>60); GLUCOSE,RANDOM 110 mg/dL (70-110); POTASSIUM 4.1 mmol/L (3.5-5.1); SODIUM SERUM 140 mmol/L (136-145); UREA NITROGEN, BLOOD 13 mg/dL (7-18)
[2018-07-30 14:17] LABS: ALANINE AMINOTRANSFERASE 33 U/L (12-78); ALKALINE PHOSPHATASE 59 U/L (46-116); ASPARTATE AMINOTRANSFERASE 20 U/L (15-37); BILIRUBIN,TOTAL 0.3 mg/dL (0.1-1.0); TOTAL PROTEIN, SERUM 7.6 g/dL (6.4-8.2)
[2018-07-30 19:24] LABS: APPEARANCE,URINE CLEAR (CLEAR); BILIRUBIN,URINE NEGATIVE (NEGATIVE); GLUCOSE, URINE (UA) NEGATIVE (NEGATIVE); KETONES,URINE NEGATIVE (NEGATIVE); LEUKOCYTE ESTERASE ,URINE NEGATIVE (NEGATIVE); NITRATE,URINE NEGATIVE (NEGATIVE); OCCULT BLOOD,URINE NEGATIVE (NEGATIVE); PH,URINE 5.5 (5.0-8.0); PROTEIN,URINE NEGATIVE (NEGATIVE); UROBILINOGEN,URINE 0.2 mg/dL (<=1.0)
[2018-07-30 19:55] VITALS: BP 148/98
== END 2018-07-30 20:00 | disposition home or self-care (01) ==
LOC: EMS 11:44
DX: S39.011A Strain of muscle, fascia and tendon of abdomen, initial encounter (principal); I10 Essential (primary) hypertension; F20.9 Schizophrenia, unspecified; F17.210 Nicotine dependence, cigarettes, uncomplicated; F15.90 Other stimulant use, unspecified, uncomplicated; Z79.899 Other long term (current) drug therapy; Z79.82 Long term (current) use of aspirin; X58.XXXA Exposure to other specified factors, initial encounter; Y93.89 Activity, other specified; Y92.89 Other specified places as the place of occurrence of the external cause; Y99.8 Other external cause status

== ENCOUNTER 2018-11-07 15:59 | Emergency (ER) | payer MEDICARE, MEDICAID ==
[~2018-11-07] VITALS: Ht 177.8 cm; Wt 90.0 kg
[~2018-11-07 15:59] MED LIST changes: +ALPR0.5T8 PO; +ATOR20TA86 PO; +LEVE500T53 PO; +PALI39DI IM
[2018-11-07 17:44] LABS: BASOPHILS % (AUTO) 0.8 % (0.0-2.0); EOSINOPHILS % (AUTO) 1.6 % (1.0-6.0); HEMATOCRIT 47.6 % (41-53); HEMOGLOBIN 15.8 g/dL (13.5-17.5); LYMPHOCYTES # (AUTO) 1.5 K/uL (1.0-4.8); LYMPHOCYTES % (AUTO) 18.7 % (22.0-44.0); MEAN CORPUSCULAR HEMOGLOBIN 28.6 pg (26.0-34.0); MEAN CORPUSCULAR HGB CONC 33.2 G/dL (31.0-37.0); MEAN CORPUSCULAR VOLUME 86 fL (80-100); MONOCYTES # (AUTO) 0.5 K/uL (0.1-1.0); MONOCYTES % (AUTO) 6.6 % (2.0-9.0); NEUTROPHILS # (AUTO) 5.9 K/uL (1.8-7.7); NEUTROPHILS % (AUTO) 72.3 % (40.0-70.0); PLATELET COUNT (AUTO) 190 K/uL (150-450); RED BLOOD CELL COUNT(AUTO) 5.52 MIL/uL (4.50-5.90); RED CELL DISTRIBUTION WIDTH 13.6 % (11.5-14.5)
[2018-11-07 17:54] LABS: ANION GAP 9 mmol/L (8-16); CALCIUM, TOTAL 9.7 mg/dL (8.8-10.5); CARBON DIOXIDE 25 mmol/L (22-29); CHLORIDE 104 mmol/L (98-107); CREATININE 1.11 mg/dL (0.60-1.30); GLOMERULAR FILTR. RATE CALC > 60 mL/min (>60); GLUCOSE,RANDOM 89 mg/dL (70-110); POTASSIUM 4.1 mmol/L (3.5-5.1); SODIUM SERUM 138 mmol/L (136-145); UREA NITROGEN, BLOOD 12 mg/dL (7-18)
[2018-11-07 18:00] LABS: ALANINE AMINOTRANSFERASE 23 U/L (12-78); ALKALINE PHOSPHATASE 65 U/L (46-116); ASPARTATE AMINOTRANSFERASE 19 U/L (15-37); BILIRUBIN,TOTAL 0.3 mg/dL (0.1-1.0); TOTAL PROTEIN, SERUM 7.6 g/dL (6.4-8.2)
[2018-11-07] MEDS ORDERED: HALOPERIDOL 5 MG TABLET PO ONE (20:45)
[2018-11-07 21:03] VITALS: BP 128/76
== END 2018-11-07 21:05 | disposition home or self-care (01) ==
LOC: EMS 16:01
DX: F20.9 Schizophrenia, unspecified (principal); F41.9 Anxiety disorder, unspecified; I10 Essential (primary) hypertension; F17.210 Nicotine dependence, cigarettes, uncomplicated; F15.90 Other stimulant use, unspecified, uncomplicated; Z79.899 Other long term (current) drug therapy; Z79.82 Long term (current) use of aspirin
CPT/HCPCS: 36415; 80053; 85025; 99284; G0480

== ENCOUNTER 2019-03-06 13:04 | Inpatient (IN) | payer OTHER, MEDICAID ==
[~2019-03-06] VITALS: Ht 172.7 cm; Wt 81.2 kg
[~2019-03-06 13:04] MED LIST changes: -AMLO-511 PO; +AMLO5TAB9 PO
[2019-03-06 13:53] LABS: BASOPHILS % (AUTO) 1.3 % (0.0-2.0); HEMATOCRIT 44.8 % (41-53); LYMPHOCYTES # (AUTO) 1.4 K/uL (1.0-4.8); LYMPHOCYTES % (AUTO) 26.9 % (22.0-44.0); MEAN CORPUSCULAR HEMOGLOBIN 28.6 pg (26.0-34.0); MEAN CORPUSCULAR HGB CONC 33.6 G/dL (31.0-37.0); MEAN CORPUSCULAR VOLUME 85 fL (80-100); MONOCYTES # (AUTO) 0.5 K/uL (0.1-1.0); MONOCYTES % (AUTO) 9.5 % (2.0-9.0); NEUTROPHILS # (AUTO) 3.2 K/uL (1.8-7.7); NEUTROPHILS % (AUTO) 59.3 % (40.0-70.0); PLATELET COUNT (AUTO) 197 K/uL (150-450); RED BLOOD CELL COUNT(AUTO) 5.25 MIL/uL (4.50-5.90); RED CELL DISTRIBUTION WIDTH 14.8 % (11.5-14.5)
[2019-03-06 14:07] LABS: ANION GAP 8 mmol/L (8-16); CALCIUM, TOTAL 9.1 mg/dL (8.8-10.5); CARBON DIOXIDE 27 mmol/L (22-29); CHLORIDE 104 mmol/L (98-107); CREATININE 1.02 mg/dL (0.60-1.30); GLOMERULAR FILTR. RATE CALC > 60 mL/min (>60); GLUCOSE,RANDOM 110 mg/dL (70-110); POTASSIUM 3.5 mmol/L (3.5-5.1); SODIUM SERUM 139 mmol/L (136-145); UREA NITROGEN, BLOOD 13 mg/dL (7-18)
[2019-03-06 14:13] LABS: ALANINE AMINOTRANSFERASE 31 U/L (12-78); ALKALINE PHOSPHATASE 67 U/L (46-116); ASPARTATE AMINOTRANSFERASE 26 U/L (15-37); BILIRUBIN,TOTAL 0.5 mg/dL (0.1-1.0); TOTAL PROTEIN, SERUM 7.8 g/dL (6.4-8.2)
[2019-03-06] MEDS ORDERED: LORazepam 2 MG TABLET PO ONE (14:45)
[2019-03-06] MEDS ORDERED: ZOLPIDEM TARTRATE 10 MG TABLET PO PRN (15:15)
[2019-03-06] MEDS ORDERED: HALOPERIDOL 5 MG TABLET PO PRN (15:15)
[2019-03-06 15:30] LABS: AMPHET/METH SCREEN,URINE POSITIVE (NEGATIVE); BARBITURATE SCREEN, URINE NEGATIVE (NEGATIVE); BENZODIAZEPINES SCREEN,URINE POSITIVE (NEGATIVE); CANNABINOID SCREEN,URINE NEGATIVE (NEGATIVE); COCAINE SCREEN,URINE NEGATIVE (NEGATIVE); METHADONE SCREEN, URINE NEGATIVE (NEGATIVE); OPIATE SCREEN,URINE NEGATIVE (NEGATIVE)
[2019-03-06 15:31] LABS: PHENCYCLIDINE SCREEN,URINE NEGATIVE (NEGATIVE)
[2019-03-06 16:39] VITALS: BP 136/84
[2019-03-06] MEDS: LORazepam 2 MG TABLET PO PRN (17:45)
[2019-03-07 05:32] VITALS: BP 139/82
[2019-03-07] MEDS: LISINOPRIL 5 MG TABLET PO SCH (08:06)
[2019-03-07] MEDS: OMEGA-3/DHA/EPA/FISH OIL 1,000 MG CAPSULE PO SCH (08:06)
[2019-03-07] MEDS: LevETIRAcetam 500 MG TABLET PO SCH ×2 (08:06→16:03)
[2019-03-07] MEDS: AmLODIPine BESYLATE 5 MG TABLET PO SCH (08:07)
[2019-03-07] MEDS: ASPIRIN 81 MG CHEWABLE TABLET PO SCH (08:07)
[2019-03-07] MEDS: ATORVASTATIN CALCIUM 20 MG TABLET PO SCH (08:07)
[2019-03-07] MEDS: NICOTINE 14 MG/24 HOUR PATCH TD SCH (08:07)
[2019-03-07 08:10] VITALS: BP 130/79
[2019-03-07] MEDS ORDERED: BACITRACIN 28.4 GM OINTMENT TP PRN (08:30)
[2019-03-07] MEDS ORDERED: CloNIDine HCL 0.1 MG TABLET PO PRN (08:30)
[2019-03-07] MEDS ORDERED: LOPERAMIDE HCL 2 MG CAPSULE PO PRN (08:30)
[2019-03-07] MEDS ORDERED: OMEPRAZOLE 20 MG CAPSULE PO PRN (08:30)
[2019-03-07] MEDS ORDERED: DOCUSATE SODIUM 100 MG CAPSULE PO PRN (08:30)
[2019-03-07] MEDS ORDERED: MAGNESIUM HYDROXIDE SUSPENSION 30 ML UDCUP PO PRN (08:30)
[2019-03-07] MEDS ORDERED: BENZOCAINE/MENTHOL LOZENGE MM PRN (08:30)
[2019-03-07] MEDS ORDERED: ACETAMINOPHEN 325 MG TABLET PO PRN (08:30)
[2019-03-07] MEDS ORDERED: ONDANSETRON HCL 4 MG TABLET PO PRN (08:30)
[2019-03-07] MEDS ORDERED: MAG HYDROX/AL HYDROX/SIMETH ES 30 ML SUSPENSION UDCUP PO PRN (08:30)
[2019-03-07] MEDS ORDERED: IBUPROFEN 600 MG TABLET PO PRN (08:30)
[2019-03-07] MEDS ORDERED: ALBUTEROL SULFATE HFA 90 MCG/PUFF 8 GM INHALER IH PRN (08:30)
[2019-03-07] MEDS ORDERED: PETROLATUM,WHITE 28 GM JELLY TP PRN (08:30)
[2019-03-07] MEDS ORDERED: PALIPERIDONE PALMITATE 234 MG/1.5 ML SYRINGE IM ONE (13:00)
[2019-03-07] MEDS: LORazepam 2 MG TABLET PO PRN (15:52)
[2019-03-07 18:37] VITALS: BP 124/75
[2019-03-08] MEDS: LORazepam 2 MG TABLET PO PRN ×2 (03:18→19:45)
[2019-03-08 03:19] VITALS: BP 129/92
[2019-03-08] MEDS: NICOTINE 14 MG/24 HOUR PATCH TD SCH (09:00)
[2019-03-08] MEDS: LevETIRAcetam 500 MG TABLET PO SCH ×2 (09:23→16:11)
[2019-03-08] MEDS: AmLODIPine BESYLATE 5 MG TABLET PO SCH (09:24)
[2019-03-08] MEDS: ASPIRIN 81 MG CHEWABLE TABLET PO SCH (09:24)
[2019-03-08] MEDS: OMEGA-3/DHA/EPA/FISH OIL 1,000 MG CAPSULE PO SCH (09:24)
[2019-03-08] MEDS: LISINOPRIL 5 MG TABLET PO SCH (09:24)
[2019-03-08] MEDS: ATORVASTATIN CALCIUM 20 MG TABLET PO SCH (09:25)
[2019-03-08 16:00] VITALS: BP 134/89
[2019-03-08] MEDS ORDERED: BENZOCAINE 10% 7 GM GEL TP PRN (20:00)
[2019-03-08] MEDS: MAGNESIUM SULFATE 454 GM BOX PO SCH (21:00)
[2019-03-09] MEDS: MAGNESIUM SULFATE 454 GM BOX PO SCH ×4 (07:30→20:16)
[2019-03-09] MEDS: LevETIRAcetam 500 MG TABLET PO SCH ×2 (08:22→16:24)
[2019-03-09] MEDS: ATORVASTATIN CALCIUM 20 MG TABLET PO SCH (08:23)
[2019-03-09] MEDS: OMEGA-3/DHA/EPA/FISH OIL 1,000 MG CAPSULE PO SCH (08:23)
[2019-03-09] MEDS: ASPIRIN 81 MG CHEWABLE TABLET PO SCH (08:24)
[2019-03-09] MEDS: LISINOPRIL 5 MG TABLET PO SCH (08:24)
[2019-03-09] MEDS: AmLODIPine BESYLATE 5 MG TABLET PO SCH (08:24)
[2019-03-09 08:37] VITALS: BP 121/83
[2019-03-09] MEDS: NICOTINE 14 MG/24 HOUR PATCH TD SCH (09:00)
[2019-03-09] MEDS: LORazepam 2 MG TABLET PO PRN ×2 (13:51→20:16)
[2019-03-09 16:00] VITALS: BP 133/75
[2019-03-10 08:04] VITALS: BP 135/90
[2019-03-10] MEDS: LISINOPRIL 5 MG TABLET PO SCH (08:47)
[2019-03-10] MEDS: AmLODIPine BESYLATE 5 MG TABLET PO SCH (08:48)
[2019-03-10] MEDS: ATORVASTATIN CALCIUM 20 MG TABLET PO SCH (08:48)
[2019-03-10] MEDS: ASPIRIN 81 MG CHEWABLE TABLET PO SCH (08:48)
[2019-03-10] MEDS: LevETIRAcetam 500 MG TABLET PO SCH ×2 (08:49→16:39)
[2019-03-10] MEDS: OMEGA-3/DHA/EPA/FISH OIL 1,000 MG CAPSULE PO SCH (08:49)
[2019-03-10] MEDS: MAGNESIUM SULFATE 454 GM BOX PO SCH ×4 (08:51→20:51)
[2019-03-10] MEDS: NICOTINE 14 MG/24 HOUR PATCH TD SCH (09:00)
[2019-03-10] MEDS: LORazepam 2 MG TABLET PO PRN (14:23)
[2019-03-10 17:06] VITALS: BP 118/77
[2019-03-11 02:53] VITALS: BP 126/86
[2019-03-11] MEDS: LevETIRAcetam 500 MG TABLET PO SCH ×2 (08:17→16:55)
[2019-03-11] MEDS: OMEGA-3/DHA/EPA/FISH OIL 1,000 MG CAPSULE PO SCH (08:17)
[2019-03-11] MEDS: LISINOPRIL 5 MG TABLET PO SCH (08:18)
[2019-03-11] MEDS: AmLODIPine BESYLATE 5 MG TABLET PO SCH (08:18)
[2019-03-11] MEDS: ASPIRIN 81 MG CHEWABLE TABLET PO SCH (08:18)
[2019-03-11 08:20] VITALS: BP 121/75
[2019-03-11] MEDS: NICOTINE 14 MG/24 HOUR PATCH TD SCH (08:26)
[2019-03-11] MEDS: MAGNESIUM SULFATE 454 GM BOX PO SCH ×4 (10:46→20:47)
[2019-03-11] MEDS: ATORVASTATIN CALCIUM 20 MG TABLET PO SCH (10:53)
[2019-03-11] MEDS: LORazepam 2 MG TABLET PO PRN ×2 (10:59→17:45)
[2019-03-11 16:08] VITALS: BP 132/86
[2019-03-12 06:40] VITALS: BP 126/80
[2019-03-12 08:00] VITALS: BP 132/85
[2019-03-12] MEDS: LISINOPRIL 5 MG TABLET PO SCH (08:19)
[2019-03-12] MEDS: AmLODIPine BESYLATE 5 MG TABLET PO SCH (08:19)
[2019-03-12] MEDS: LevETIRAcetam 500 MG TABLET PO SCH (08:19)
[2019-03-12] MEDS: OMEGA-3/DHA/EPA/FISH OIL 1,000 MG CAPSULE PO SCH (08:19)
[2019-03-12] MEDS: ASPIRIN 81 MG CHEWABLE TABLET PO SCH (08:19)
[2019-03-12] MEDS: MAGNESIUM SULFATE 454 GM BOX PO SCH ×2 (08:19→12:30)
[2019-03-12] MEDS: ATORVASTATIN CALCIUM 20 MG TABLET PO SCH (08:19)
[2019-03-12] MEDS: NICOTINE 14 MG/24 HOUR PATCH TD SCH (08:20)
[2019-03-12] MEDS: LORazepam 2 MG TABLET PO PRN (09:28)
[2019-03-12] MEDS ORDERED: PALI234D IM (13:17)
== END 2019-03-12 15:13 | disposition home or self-care (01) | DRG 885 ==
LOC: EMS 13:07 → B3A 16:48
PROVIDERS: ADMIT Psychiatry & Neurology Psychiatry; ATTEND Psychiatry & Neurology Psychiatry
DX: F25.9 Schizoaffective disorder, unspecified (principal); F15.90 Other stimulant use, unspecified, uncomplicated; F17.210 Nicotine dependence, cigarettes, uncomplicated; G40.909 Epilepsy, unspecified, not intractable, without status epilepticus; G47.00 Insomnia, unspecified; I10 Essential (primary) hypertension; K59.00 Constipation, unspecified; F41.9 Anxiety disorder, unspecified; Z56.0 Unemployment, unspecified
CPT/HCPCS: G0480

== ENCOUNTER 2020-01-30 23:24 | Emergency (ER) | payer MEDICARE, MEDICAID ==
[~2020-01-30] VITALS: Ht 177.8 cm; Wt 90.9 kg
[~2020-01-30 23:24] MED LIST changes: -ALPR0.5T8 PO; +AMLO-257 PO; -AMLO5TAB9 PO; +ASPI-728 PO; -ASPI81 PO; -DIVA-78 PO; +PALI234D IM; -PALI39DI IM; -RISP3 PO
[2020-01-31] MEDS ORDERED: LORazepam 1 MG TABLET PO ONE (00:15)
[2020-01-31 00:30] VITALS: BP 158/115
== END 2020-01-31 01:10 | disposition home or self-care (01) ==
LOC: EMS 23:25
DX: F25.9 Schizoaffective disorder, unspecified (principal); F17.210 Nicotine dependence, cigarettes, uncomplicated; F15.90 Other stimulant use, unspecified, uncomplicated; I10 Essential (primary) hypertension
CPT/HCPCS: 93005; 99406; Z7502; Z7610

== ENCOUNTER 2020-05-10 17:35 | Emergency (ER) | payer MEDICARE, MEDICAID ==
[~2020-05-10] VITALS: Ht 177.8 cm; Wt 90.5 kg
[~2020-05-10 17:35] MED LIST changes: -LISI-660 PO
[2020-05-10] MEDS ORDERED: LEVOFLOXACIN 500 MG TABLET PO ONE (19:30)
[2020-05-10] MEDS ORDERED: LIDOCAINE/PF 1% 2 ML VIAL IM ONE (19:30)
[2020-05-10] MEDS ORDERED: ACETAMINOPHEN 500 MG TABLET PO ONE (19:30)
[2020-05-10] MEDS ORDERED: CefTRIAXone SODIUM 1 GM/VIAL IM ONE (19:30)
[2020-05-10 19:45] LABS: BASOPHILS % (AUTO) 1.1 % (0.0-2.0); EOSINOPHILS % (AUTO) 3.5 % (1.0-6.0); HEMATOCRIT 40.2 % (41-53); HEMOGLOBIN 13.5 g/dL (13.5-17.5); LYMPHOCYTES # (AUTO) 1.6 K/uL (1.0-4.8); LYMPHOCYTES % (AUTO) 24.5 % (22.0-44.0); MEAN CORPUSCULAR HEMOGLOBIN 28.2 pg (26.0-34.0); MEAN CORPUSCULAR HGB CONC 33.6 G/dL (31.0-37.0); MEAN CORPUSCULAR VOLUME 84 fL (80-100); MONOCYTES # (AUTO) 0.6 K/uL (0.1-1.0); MONOCYTES % (AUTO) 9.7 % (2.0-9.0); NEUTROPHILS % (AUTO) 61.2 % (40.0-70.0); PLATELET COUNT (AUTO) 182 K/uL (150-450); RED BLOOD CELL COUNT(AUTO) 4.79 MIL/uL (4.50-5.90); RED CELL DISTRIBUTION WIDTH 13.9 % (11.5-14.5)
[2020-05-10 20:35] LABS: ALANINE AMINOTRANSFERASE 30 U/L (12-78); ALBUMIN 3.3 g/dL (3.4-5.0); ALKALINE PHOSPHATASE 61 U/L (46-116); ANION GAP 1 mmol/L (8-16); ASPARTATE AMINOTRANSFERASE 20 U/L (15-37); BILIRUBIN,TOTAL 0.2 mg/dL (0.1-1.0); CARBON DIOXIDE 28 mmol/L (22-29); CHLORIDE 102 mmol/L (98-107); GLOMERULAR FILTR. RATE CALC > 60 mL/min (>60); GLUCOSE,RANDOM 105 mg/dL (70-110); POTASSIUM 3.5 mmol/L (3.5-5.1); SODIUM SERUM 131 mmol/L (136-145); TOTAL PROTEIN, SERUM 7.4 g/dL (6.4-8.2); UREA NITROGEN, BLOOD 12 mg/dL (7-18)
[2020-05-10 20:55] VITALS: BP 168/98
== END 2020-05-10 20:57 | disposition home or self-care (01) ==
LOC: EMS 17:35
DX: F25.9 Schizoaffective disorder, unspecified (principal); L03.115 Cellulitis of right lower limb; F41.9 Anxiety disorder, unspecified; I10 Essential (primary) hypertension; F17.210 Nicotine dependence, cigarettes, uncomplicated
CPT/HCPCS: 36415; 80053; 85025; 96372; 99283; 99406; J0696; J3490

== ENCOUNTER 2020-12-07 00:48 | Emergency (ER) | payer MEDICARE, MEDICAID ==
[~2020-12-07] VITALS: Ht 177.8 cm; Wt 100.0 kg
[~2020-12-07 00:48] MED LIST changes: +ASPI-1450 PO; -ASPI-728 PO
[2020-12-07 01:15] VITALS: BP 125/93
[2020-12-07] MEDS ORDERED: CIPROFLOXACIN HCL 0.2%/HYDROCORT 1% 10 ML OTIC SUSPENSION AS ONE (03:30)
== END 2020-12-07 04:00 | disposition home or self-care (01) ==
LOC: EMS 00:48
DX: H60.92 Unspecified otitis externa, left ear (principal); F17.210 Nicotine dependence, cigarettes, uncomplicated; F15.90 Other stimulant use, unspecified, uncomplicated; Z79.899 Other long term (current) drug therapy; Z79.82 Long term (current) use of aspirin
CPT/HCPCS: 99283

== ENCOUNTER 2022-09-28 08:59 | Emergency (ER) | payer MEDICARE, MEDICAID ==
[~2022-09-28] VITALS: Ht 175.3 cm; Wt 100.0 kg
[~2022-09-28 08:59] MED LIST changes: +ATOR20TA PO; -ATOR20TA86 PO; +LEVE500T20 PO; -LEVE500T53 PO
[2022-09-28 09:12] VITALS: BP 179/100
[2022-09-28] MEDS ORDERED: FURO20 PO ×2 (09:15→09:40)
[2022-09-28] MEDS ORDERED: LISI-892 PO (09:16)
[2022-09-28] MEDS ORDERED: LISI20TA24 PO (09:27)
[2022-09-28] MEDS ORDERED: FURO20TA4 PO (09:27)
[2022-09-28] MEDS ORDERED: AMLO10TA55 PO (09:27)
[2022-09-28] MEDS ORDERED: AmLODIPine BESYLATE 10 MG TABLET PO ONE (09:30)
[2022-09-28] MEDS ORDERED: ACETAMINOPHEN 500 MG TABLET PO ONE (09:30)
[2022-09-28] MEDS ORDERED: KETOROLAC TROMETHAMINE 30 MG/ML VIAL IM ONE (09:30)
[2022-09-28] MEDS ORDERED: AMLO-258 PO (09:40)
[2022-09-28] MEDS ORDERED: LISI-893 PO (09:40)
== END 2022-09-28 09:54 | disposition home or self-care (01) ==
LOC: EMS 09:03
DX: M79.672 Pain in left foot (principal); M79.671 Pain in right foot; I10 Essential (primary) hypertension; F20.9 Schizophrenia, unspecified; F17.210 Nicotine dependence, cigarettes, uncomplicated; Z76.0 Encounter for issue of repeat prescription
CPT/HCPCS: 99283; 96372; J1885

== ENCOUNTER 2022-10-24 12:52 | Emergency (ER) | payer MEDICARE, MEDICAID ==
[~2022-10-24] VITALS: Ht 177.8 cm; Wt 100.0 kg
[~2022-10-24 12:52] MED LIST changes: -AMLO-257 PO; +AMLO-258 PO; +AMLO10TA55 PO; +FURO20 PO; +FURO20TA4 PO; +LISI-893 PO; +LISI20TA24 PO
[2022-10-24] MEDS ORDERED: LevETIRAcetam 1,000 MG in DEXTROSE 5%-WATER 100 ML IV ONE (13:30)
[2022-10-24 13:47] LABS: BASOPHILS % (AUTO) 0.6 % (0.0-2.0); EOSINOPHILS % (AUTO) 1.8 % (1.0-6.0); HEMATOCRIT 46.5 % (41-53); HEMOGLOBIN 15.3 g/dL (13.5-17.5); LYMPHOCYTES # (AUTO) 2.2 K/uL (1.0-4.8); LYMPHOCYTES % (AUTO) 17.6 % (22.0-44.0); MEAN CORPUSCULAR HEMOGLOBIN 28.3 pg (26.0-34.0); MEAN CORPUSCULAR HGB CONC 32.8 G/dL (31.0-37.0); MEAN CORPUSCULAR VOLUME 86 fL (80-100); MONOCYTES # (AUTO) 0.8 K/uL (0.1-1.0); MONOCYTES % (AUTO) 6.4 % (2.0-9.0); NEUTROPHILS # (AUTO) 9.2 K/uL (1.8-7.7); NEUTROPHILS % (AUTO) 73.6 % (40.0-70.0); PLATELET COUNT (AUTO) 192 K/uL (150-450); RED CELL DISTRIBUTION WIDTH 13.8 % (11.5-14.5)
[2022-10-24 13:56] LABS: ANION GAP 9 mmol/L (8-16); CALCIUM, TOTAL 9.2 mg/dL (8.8-10.5); CARBON DIOXIDE 26 mmol/L (22-29); CHLORIDE 105 mmol/L (98-107); CREATININE 1.12 mg/dL (0.60-1.30); GLOMERULAR FILTR. RATE CALC > 60 mL/min (>60); GLUCOSE,RANDOM 133 mg/dL (70-110); POTASSIUM 3.5 mmol/L (3.5-5.1); SODIUM SERUM 140 mmol/L (136-145)
[2022-10-24 14:03] LABS: ALANINE AMINOTRANSFERASE 28 U/L (12-78); ALBUMIN 3.5 g/dL (3.4-5.0); ALKALINE PHOSPHATASE 81 U/L (46-116); ASPARTATE AMINOTRANSFERASE 16 U/L (15-37); BILIRUBIN,TOTAL 0.5 mg/dL (0.1-1.0); TOTAL PROTEIN, SERUM 7.6 g/dL (6.4-8.2)
[2022-10-24] MEDS ORDERED: AmLODIPine BESYLATE 10 MG TABLET PO ONE (14:15)
[2022-10-24] MEDS ORDERED: ACETAMINOPHEN 325 MG TABLET PO ONE ×2 (14:45→20:30)
[2022-10-24] MEDS ORDERED: SODIUM CHLORIDE 0.9% 1,000 ML IV ONE (15:00)
[2022-10-24] MEDS ORDERED: KETOROLAC TROMETHAMINE 30 MG/ML VIAL IVP ONE (16:00)
[2022-10-24] MEDS ORDERED: HydrALAZINE HCL 20 MG/ML VIAL IVP ONE (16:00)
[2022-10-24] MEDS ORDERED: ACET-784 PO (16:57)
[2022-10-24 19:26] VITALS: BP 120/82
== END 2022-10-24 20:40 | disposition home or self-care (01) ==
LOC: EMS 13:01
DX: R51.9 Headache, unspecified (principal); I10 Essential (primary) hypertension; F20.9 Schizophrenia, unspecified; F17.210 Nicotine dependence, cigarettes, uncomplicated
CPT/HCPCS: 99285; 96365; 70450; 96375; 80053; 84484; 85025; 36415; 93005; J0712; G0480; J0360; J1885; J7060

== ENCOUNTER 2024-03-08 22:01 | Emergency (ER) | payer MEDICARE, MEDICAID ==
[~2024-03-08] VITALS: Ht 177.8 cm; Wt 11.4 kg
[~2024-03-08 22:01] MED LIST changes: +ACET-784 PO; -AMLO10TA55 PO; -FURO20 PO; -FURO20TA4 PO; +FURO20TA5 PO; +LEVE-71 PO; -LEVE500T20 PO; -LISI20TA24 PO
[2024-03-08 22:06] VITALS: TEMP 98.9
[2024-03-09] MEDS: TraMADol HCL 50 MG TABLET PO ONE (00:01)
[2024-03-09 02:10] VITALS: BP 164/88; PULSE 87; RESP 20; O2SAT 99
== END 2024-03-09 02:56 | disposition home or self-care (01) ==
LOC: EMS 22:01
DX: M77.9 Enthesopathy, unspecified (principal); R51.9 Headache, unspecified; M25.512 Pain in left shoulder; I10 Essential (primary) hypertension; E78.00 Pure hypercholesterolemia, unspecified; F20.9 Schizophrenia, unspecified; F17.210 Nicotine dependence, cigarettes, uncomplicated; Z79.82 Long term (current) use of aspirin; Z79.899 Other long term (current) drug therapy
CPT/HCPCS: 70450; 99284

== ENCOUNTER → 2024-07-31 | Emergency (ER) | payer MEDICARE, MEDICAID ==
[~2024-07-31] VITALS: Ht 172.7 cm; Wt 90.9 kg
[~2024-07-31] MED LIST changes: +LISI-894 PO; +LORA1TAB25 PO
[2024-07-31 21:52] VITALS: TEMP 98.9
[2024-07-31 22:21] LABS: COVID AG,FIA SOURCE NASAL SWAB
[2024-07-31 22:43] LABS: INFLUENZA TYPE A NEGATIVE FOR TYPE A (NEGATIVE); INFLUENZA TYPE B NEGATIVE FOR TYPE B (NEGATIVE); SARS-COV2 (COVID) ANTIGEN,FIA Negative (Negative)
[2024-07-31] MEDS: LISINOPRIL 10 MG TABLET PO ONE (23:08)
[2024-07-31] MEDS: LORazepam 2 MG TABLET PO ONE (23:08)
[2024-07-31 23:25] VITALS: BP 159/90; PULSE 86; RESP 16; O2SAT 97
== END | disposition home or self-care (01) ==
LOC: EMS 21:35
DX: F41.9 Anxiety disorder, unspecified (principal); I10 Essential (primary) hypertension; E78.00 Pure hypercholesterolemia, unspecified; F20.9 Schizophrenia, unspecified; F17.210 Nicotine dependence, cigarettes, uncomplicated; Z79.82 Long term (current) use of aspirin; Z79.899 Other long term (current) drug therapy; Z20.822 Contact with and (suspected) exposure to COVID-19
CPT/HCPCS: 87804; 99283

== ENCOUNTER 2024-12-05 15:45 | Emergency (ER) | payer MEDICARE, MEDICAID ==
[~2024-12-05] VITALS: Ht 177.8 cm; Wt 86.0 kg
[~2024-12-05 15:45] MED LIST changes: -AMLO-258 PO; +EMPA10TA3 PO; -LISI-893 PO; -LISI-894 PO; -LORA1TAB25 PO; +LOSA-381 PO; +METO25XL PO; -OMEG-135 PO; -PALI234D IM; +SPIR-37 PO
[2024-12-05 15:50] VITALS: TEMP 98.6
[2024-12-05] MEDS: SPIRONOLACTONE 25 MG TABLET PO ONE (16:27)
[2024-12-05] MEDS: LOSARTAN POTASSIUM 25 MG TABLET PO ONE (16:27)
[2024-12-05 16:46] LABS: PLATELET COUNT (AUTO) 157 K/uL (150-450); RED BLOOD CELL COUNT(AUTO) 5.78 MIL/uL (4.50-5.90); RED CELL DISTRIBUTION WIDTH 14.8 % (11.5-14.5); WHITE BLOOD COUNT (AUTO) 6.0 K/uL (4.5-11.0)
[2024-12-05] MEDS: METOPROLOL SUCCINATE 25 MG ER TABLET PO ONE (16:46)
[2024-12-05 16:48] LABS: CALCIUM, TOTAL 8.2 mg/dL (8.8-10.5); CREATININE 1.10 mg/dL (0.60-1.30); GLOMERULAR FILTR. RATE CALC > 60 mL/min (>60); GLUCOSE,RANDOM 100 mg/dL (70-110); SODIUM SERUM 141 mmol/L (136-145); UREA NITROGEN, BLOOD 7 mg/dL (7-18)
[2024-12-05 16:58] LABS: COVID AG,FIA SOURCE NASAL SWAB
[2024-12-05 17:00] LABS: PH,URINE DRUG SCREEN 6.0 (5.0-8.0)
[2024-12-05] MEDS ORDERED: METO25XL PO (17:05)
[2024-12-05] MEDS ORDERED: EMPA10TA3 PO (17:05)
[2024-12-05] MEDS ORDERED: LEVE-71 PO (17:05)
[2024-12-05] MEDS ORDERED: SPIR-37 PO (17:05)
[2024-12-05] MEDS ORDERED: LOSA-381 PO (17:05)
[2024-12-05 17:13] LABS: AMPHET/METH SCREEN,URINE POSITIVE (NEGATIVE); BARBITURATE SCREEN, URINE NEGATIVE (NEGATIVE); CANNABINOID SCREEN,URINE NEGATIVE (NEGATIVE); COCAINE SCREEN,URINE NEGATIVE (NEGATIVE); METHADONE SCREEN, URINE NEGATIVE (NEGATIVE)
[2024-12-05 17:15] LABS: ALCOHOL, URINE DRUG SCREEN NEGATIVE (NEGATIVE)
[2024-12-05 17:16] LABS: SARS-COV2 (COVID) ANTIGEN,FIA Negative (Negative)
[2024-12-05 17:23] VITALS: BP 158/107; PULSE 89; RESP 18; O2SAT 98
== END 2024-12-05 18:24 | disposition home or self-care (01) ==
LOC: EMS 15:56
DX: F20.9 Schizophrenia, unspecified (principal); I10 Essential (primary) hypertension; E78.00 Pure hypercholesterolemia, unspecified; G40.909 Epilepsy, unspecified, not intractable, without status epilepticus; F17.210 Nicotine dependence, cigarettes, uncomplicated; Z20.822 Contact with and (suspected) exposure to COVID-19; Z79.82 Long term (current) use of aspirin; Z79.899 Other long term (current) drug therapy
CPT/HCPCS: 99284; 87426; 80048; 85025; 36415; 80307; G0480